=== PATIENT | female | born 1955 | race Hispanic/Latino ===

== ENCOUNTER 2017-07-27 09:08 | Outpatient (CLI) | payer BC ==
--- NOTE | 2017-07-27 10:26 | XRay Report ---
XRAY RIGHT HIP TWO VIEWS: 07/27/17 09:08:00 CLINICAL: Right hip pain. FINDINGS: No fracture or dislocation.Mild osteoarthritis of both hips. The pelvic bones are intact. Normal SI joints. Normal soft tissues. IMPRESSION: Mild osteoarthritis.
== END 2017-07-27 09:09 | disposition home or self-care (01) ==
LOC: SPVIMAG 09:08
PROVIDERS: ATTEND Orthopaedic Surgery Sports Medicine
DX: M16.11 Unilateral primary osteoarthritis, right hip (principal)